=== PATIENT | female | born 2000 | race Caucasian/White ===

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

== ENCOUNTER 2019-01-19 18:11 | Emergency (ER) | payer BC, MEDICAID ==
[2019-01-19 18:34] VITALS: BP 99/64
--- NOTE | 2019-01-19 19:37 | UC ---
Abdominal Pain Female HPI - HPI Summary HPI Summary: 18 year old female presents with 3 day history of epigastric pain with nausea. States she vomited once this morning with blood streaks in her emesis. Reports pain is constant, sharp, and worsens with eating. Patient states she has had some similar issues in the past with no definitive diagnosis. Had an EGD performed approximately 2 years ago that showed "some inflammation". Denies fever, chills, heartburn, diarrhea, blood in stool, melena, back/flank pain, dysuria, frequency, urgency, or hematuria. - History of Current Complaint Chief Complaint: UCGI Stated Complaint: ABDOMINAL PAIN Time Seen by Provider: 01/19/19 19:21 Hx Obtained From: Patient Hx Last Menstrual Period: Currently Pain Intensity: 9 Allergies/Adverse Reactions: Allergies Allergy/AdvReac Type Severity Reaction Status Date / Time Penicillins Allergy Rash Verified 01/19/19 18:34 PMH/Surg Hx/FS Hx/Imm Hx Previously Healthy: Yes Other History Of: Negative For: HIV, Hepatitis B, Anticoagulant Therapy - Surgical History Surgical History: None - Family History Known Family History: Positive: Hypertension Negative: Cardiac Disease, Diabetes - Social History Occupation: Student Lives: With Family Alcohol Use: Rare Substance Use Type: None Smoking Status (MU): Never Smoked Tobacco - Immunization History Vaccination Up to Date: Yes Review of Systems All Other Systems Reviewed And Are Negative: Yes Constitutional: Negative: Fever, Chills ENT: Negative: Sore Throat Respiratory: Negative: Shortness Of Breath, Cough Cardiovascular: Negative: Palpitations, Chest Pain Gastrointestinal: Positive: Abdominal Pain, Vomiting, Nausea. Negative: Diarrhea Genitourinary: Negative: Dysuria, Hematuria, Frequency, Urgency Musculoskeletal: Positive: Negative Neurological: Positive: Negative Is Patient Immunocompromised?: No Physical Exam - Summary Physical Exam Summary: GENERAL APPEARANCE: Well developed, well nourished, alert and cooperative, and appears to be in no acute distress. NOSE: Mild nasal congestion. No nasal discharge. THROAT: Pharynx normal. Tonsils 2+ without exudate or lesions. Uvula midline. Oral cavity normal. Teeth and gingiva in good general condition. NECK: Neck supple, non-tender without lymphadenopathy. CARDIAC: Normal S1 and S2. No S3, S4 or murmurs. Rhythm is regular. There is no peripheral edema, cyanosis or pallor. Extremities are warm and well perfused. Capillary refill is less than 2 seconds. Peripheral pulses intact. LUNGS: Clear to auscultation without rales, rhonchi, wheezing or diminished breath sounds. ABDOMEN: Positive bowel sounds. Soft, nondistended. Generalized abdominal pain with pain most pronounced in the RUQ and epigastrum. No guarding or rebound. No masses or hepatosplenomegally. No CVA tenderness. MUSKULOSKELETAL: ROM intact to all extremities. No joint erythema or tenderness. Normal muscular development. Normal gait. SKIN: Skin normal color, texture and turgor with no lesions or eruptions. Triage Information Reviewed: Yes Vital Signs: Initial Vital Signs Temp 98.9 F 01/19/19 18: Pulse 90 01/19/19 18:23 Resp 18 01/19/19 18: BP 99/64 01/19/19 18: Pulse Ox 96 01/19/19 18:23 Vital Signs Reviewed: Yes Abd Pain Female Course/Dx - Course Course Of Treatment: 18 year old female presents with 3 day history of epigastric pain with nausea. States she vomited once this morning with blood streaks in her emesis. Reports pain is constant, sharp, and worsens with eating. Patient states she has had some similar issues in the past with no definitive diagnosis. Had an EGD performed approximately 2 years ago that showed "some inflammation". Denies fever, chills, heartburn, diarrhea, blood in stool, melena, back/flank pain, dysuria, frequency, urgency, or hematuria. She is presently having her menses. Afebrile. Vital signs stable. Exam remarkable for generalized abdominal pain, most pronounced in the epigastrum and RUQ. No hepatosplenomegally. No CVA tenderness. POC UA showed 2+ blood, likely from menses, but was otherwise negative. Urine negative. Discussed differential diagnoses with patient including PUD, gall bladder disease, pancreatitis, and GERD. Ultrasound not available at this time therefore recommending that she be evaluated in the ED at this time to which she is agreeable. She is electing to transport via private vehicle with her aunt driving. She was recommended to remain NPO until evaluation. - Differential Dx/Diagnosis Differential Diagnosis: Gall Bladder Disease, Peptic Ulcer Disease, , Urinary Tract Infection Provider Diagnosis: Epigastric abdominal pain Discharge - Sign-Out/Discharge Documenting (check all that apply): Patient Departure All imaging exams completed and their final reports reviewed: No Studies - Discharge Plan Condition: Stable Disposition: HOME Patient Education Materials: Acute Abdominal Pain (ED) Referrals: Chet López MD [Primary Care Provider] - Additional Instructions: I suspect that your abdominal pain may be peptic ulcer disease although I cannot fully rule out the possibility of gall bladder disease. I do not have ultrasound available at this time and therefore cannot rule this out. I am recommending that you go to the emergency room for further evaluation at this time. Go directly to the emergency room at [facility]. Do not eat or drink anything until you have been evaluated. - Billing Disposition and Condition Condition: STABLE Disposition: Home
== END 2019-01-19 20:05 | disposition home or self-care (01) ==
LOC: UCEAST 18:11
DX: R10.13 Epigastric pain (principal); Z88.0 Allergy status to penicillin
CPT/HCPCS: 81003; 84702; 99212; G0463

== ENCOUNTER 2019-01-19 20:36 | Emergency (ER) | payer SELFPAY ==
[2019-01-19] MEDS ORDERED: Lidocaine 2% VISCOUS* 15 ML UDC PO ONE (21:41)
[2019-01-19] MEDS ORDERED: Al Hydrox/Mg Hydrox/Simet LIQ* 30 ML UDC PO ONE (21:41)
[2019-01-19] MEDS ORDERED: Ondansetron ODT TAB* 4 MG PO ONE (21:41)
[2019-01-19] MEDS ORDERED: Famotidine TAB* 20 MG PO ONE (21:42)
--- NOTE | 2019-01-19 21:45 | ED ---
GI/ HPI - HPI Summary HPI Summary: 18-year-old female presents with epigastric pain for the past couple days. States she's had this in the past. She started taking ibuprofen for pain. She states she vomited and there was minimal blood. She denies any urinary symptoms. No diarrhea or constipation. She denies any vaginal discharge. No previous belly surgeries. Has no conditions. Had endoscope two year ago that showed some inflammatory in her stomach. - History of Current Complaint Chief Complaint: EDAbdPain Time Seen by Provider: 01/19/19 21:34 Stated Complaint: CC SAID SHE NEEDS AN ULTRA SOUND PER MOTHER Hx Last Menstrual Period: Currently Pain Intensity: 8 - Allergy/Home Medications Allergies/Adverse Reactions: Allergies Allergy/AdvReac Type Severity Reaction Status Date / Time Penicillins Allergy Rash Verified 01/19/19 20:44 PMH/Surg Hx/FS Hx/Imm Hx Endocrine/Hematology History: Denies: Hx Anticoagulant Therapy, Hx Diabetes, Hx Thyroid Disease Cardiovascular History: Denies: Hx Congestive Heart Failure, Hx Deep Vein Thrombosis, Hx Hypertension , Hx Myocardial Infarction, Hx Pacemaker/ICD Respiratory History: Reports: Hx Asthma Denies: Hx Chronic Obstructive Pulmonary Disease (COPD), Hx Lung Cancer, Hx Pneumonia, Hx Pulmonary Embolism GI History: Denies: Hx Gall Bladder Disease, Hx Gastrointestinal Bleed, Hx Ulcer, Hx Urosepsis History: Denies: Hx Kidney Stones, Hx Renal Disease Neurological History: Denies: Hx Dementia, Hx Migraine, Hx Seizures, Hx Transient Ischemic Attacks (TIA) Psychiatric History: Reports: Hx Anxiety, Hx Depression, Hx Bipolar Disorder Infectious Disease History: No Infectious Disease History: Denies: Traveled Outside the [place] in Last 30 Days - Family History Known Family History: Positive: Hypertension Negative: Cardiac Disease, Diabetes - Social History Alcohol Use: Rare Substance Use Type: Reports: None Smoking Status (MU): Never Smoked Tobacco Review of Systems Negative: Fever Negative: Chest Pain Negative: Shortness Of Breath Positive: Abdominal Pain. Negative: Vomiting, Diarrhea, Nausea All Other Systems Reviewed And Are Negative: Yes Physical Exam Triage Information Reviewed: Yes Vital Signs On Initial Exam: Initial Vitals Temp Pulse Resp BP Pulse Ox 99.1 F 80 16 134/66 98 01/19/19 20:40 01/19/19 20:40 01/19/19 20:40 01/19/19 20:40 01/19/19 20:40 Vital Signs Reviewed: Yes Appearance: Positive: Well-Appearing Skin: Positive: Warm, Dry Head/Face: Positive: Normal Head/Face Inspection Eyes: Positive: Normal, Conjunctiva Clear ENT: Positive: Pharynx normal Respiratory/Lung Sounds: Positive: Clear to Auscultation, Breath Sounds Present Cardiovascular: Positive: Normal, RRR Abdomen Description: Positive: Soft, Other: - tenderness in epigastric region Bowel Sounds: Positive: Present Musculoskeletal: Positive: Normal Neurological: Positive: Normal Psychiatric: Positive: Normal Diagnostics - Vital Signs Vital Signs Temp Pulse Resp BP Pulse Ox 01/19/19 20:40 99.1 F 80 16 134/66 98 - Laboratory Result Diagrams: 01/19/19 21:47 01/19/19 21:47 Lab Statement: Any lab studies that have been ordered have been reviewed, and results considered in the medical decision making process. - Ultrasound No standard instances Ultrasound Interpretation Completed By: Radiologist Summary of Ultrasound Findings: IMPRESSION: 1. No evidence of an echogenic stone located in the gallbladder. No abnormal. gallbladder wall thickening. 2. The appearance of the liver, right kidney and what was seen of the pancreas. are normal. GIGU Course/Dx - Course Course Of Treatment: 18-year-old female presents with epigastric pain for the past couple days. States she's had this in the past. She started taking ibuprofen for pain. She states she vomited and there was minimal blood. She denies any urinary symptoms. No diarrhea or constipation. She denies any vaginal discharge. No previous belly surgeries. Has no conditions. Had endoscope two year ago that showed some inflammatory in her stomach. On exam has mild tenderness in the epigastric. wbc normal. CRP normal. gallbladder ultrasound normal. We'll treat with omeprazole, carafate and maalox. told follow up with GI if no improvement. patient understand and agrees with plan. - Diagnoses Differential Diagnoses - Female: Esophagitis/Gastritis, Gall Bladder Disease, Urinary Tract Infection Provider Diagnoses: Epigastric pain Discharge - Sign-Out/Discharge Documenting (check all that apply): Patient Departure Patient Received Moderate/Deep Sedation with Procedure: No - Discharge Plan Condition: Good Disposition: HOME Prescriptions: Al Hydrox/Mg Hydrox/Simet LIQ* [Maalox Plus*] 30 ml PO Q6H PRN #1 bottle PRN Reason: Dyspepsia Omeprazole CAP (NF) [Prilosec CAP* 20 MG] 20 mg PO DAILY #14 vionne. Ondansetron ODT TAB* [Zofran 4 MG Odt TAB*] 4 mg PO Q6H PRN #12 tab.odt PRN Reason: Nausea Sucralfate TAB* [Carafate*] 1 gm PO BID #28 tab Patient Education Materials: Epigastric Pain (ED) Referrals: Hattie Patton MD [Medical Doctor] - Additional Instructions: Take omeprazole once a day Take Maalox 30ml every 6 hours for epigastric pain as needed take carafate twice a day avoid acidic food Follow up with GI if no improvement Return to ED if develop any new or worsening symptoms - Billing Disposition and Condition Condition: GOOD Disposition: Home
[2019-01-19 21:57] LABS: ABS Basophils 0 10^3/ul (0-0.2); ABS Eosinophils 0 10^3/ul (0-0.6); ABS Monocytes 0.4 10^3/ul (0-0.8); ABS Neutrophils 3.3 10^3/ul (1.5-7.7); ABS Nucleated RBC 0 10^3/ul; Hematocrit 39 % (33-41); Hemoglobin 13.4 g/dL (12.0-16.0); Lymphocyte % 21.7 %; Mean Corpuscular HGB Conc 35 g/dL (31-36); Mean Corpuscular Hemoglobin 31 pg (27-31); Mean Corpuscular Volume 88 fL (80-97); Mean Platelet Volume 7.8 fL (7.4-10.4); Nucleated Red Blood Cells % 0.1; Platelet Count 247 10^3/uL (150-450); Red Blood Count 4.38 10^6 /uL (3.70-4.87); Red Cell Distribution Width 13 % (10.5-15); White Blood Count 4.8 10^3/uL (3.5-10.8)
[2019-01-19 22:12] LABS: ALT 8 U/L (7-52); AST 12 U/L (13-39); Albumin 4.7 g/dL (3.2-5.2); Alkaline Phosphatase 55 U/L (34-104); Anion Gap 7 mmol/L (2-11); BUN/Creatinine Ratio 17.5 (8-20); Blood Urea Nitrogen 10 mg/dL (6-24); CO2 Carbon Dioxide 24 mmol/L (22-32); Calcium 9.2 mg/dL (8.6-10.3); Chloride 107 mmol/L (101-111); EGFR African American 165.3 (>60); EGFR Non-African American 136.6 (>60); Globulin 2.3 g/dL (2-4); Glucose 84 mg/dL (70-100); Potassium 3.8 mmol/L (3.5-5.0); Sodium 138 mmol/L (135-145)
[2019-01-19 22:18] LABS: HCG Pregnancy < 0.60 mIU/mL
[2019-01-19 23:53] VITALS: BP 115/74
== END 2019-01-19 23:45 | disposition home or self-care (01) ==
LOC: ED 20:36
DX: R10.13 Epigastric pain (principal); K92.0 Hematemesis; Z88.0 Allergy status to penicillin
CPT/HCPCS: 36415; 76705; 80053; 83690; 84702; 85025; 99282; A9270-GY

== ENCOUNTER 2019-08-20 11:54 | Emergency (ER) | payer SELFPAY ==
[2019-08-20 13:04] VITALS: BP 102/63
--- NOTE | 2019-08-20 13:48 | UC ---
Throat Pain/Nasal Sebas HPI - HPI Summary HPI Summary: 19 y/o female presents to the urgent care c/o Sinus congestion and pressure w/ yellowish nasal discharge for the past 2 weeks. Then she developed a deep cough and dry heaving , Nausea, decrease appetite, myalgias. She is unsure if she has had a fever, but is experiencing cold sweats for the past 2 days. She feels like something new is over her. Pt denies SOB, wheezing, dizziness, ear pain, chest pain, abdominal pain, N/V/D. She has taken OTC medications w/o any improvement. - History of Current Complaint Chief Complaint: UCGeneralIllness Stated Complaint: COUGH/NAUSEA Time Seen by Provider: 08/20/19 13:44 Hx Obtained From: Patient Hx Last Menstrual Period: 08/20/19 ?: No Onset/Duration: Gradual Onset, Lasting Weeks - 2 weeks, Still Present, Worse Since - 2 days Severity: Moderate Pain Intensity: 4 - sinus pain Pain Scale Used: 0-10 Numeric Cough: Nonproductive Associated Signs & Symptoms: Positive: Sinus Discomfort, Nasal Discharge - yellowish. Negative: Wheezing, Hoarseness, Fever - Epiglottits Risk Factors Epiglottis Risk Factors: Negative - Allergies/Home Medications Allergies/Adverse Reactions: Allergies Allergy/AdvReac Type Severity Reaction Status Date / Time Penicillins Allergy Rash Verified 08/20/19 12:59 Home Medications: Home Medications Ibuprofen/Pseudoephedrine HCl [Advil Cold & Sinus Caplet] 1 tab PO ONCE [History Confirmed 08/20/19] PMH/Surg Hx/FS Hx/Imm Hx Previously Healthy: Yes Respiratory History: Asthma - exercise induced asthma Other History Of: Negative For: HIV, Hepatitis B, Anticoagulant Therapy - Surgical History Surgical History: Yes Surgery Procedure, Year, and Place: Endoscopy 2017 - Family History Known Family History: Positive: Hypertension Negative: Cardiac Disease, Diabetes - Social History Occupation: Student Lives: With Family Alcohol Use: None Substance Use Type: None Smoking Status (MU): Never Smoked Tobacco - Immunization History Vaccination Up to Date: Yes Review of Systems All Other Systems Reviewed And Are Negative: Yes Constitutional: Positive: Chills, Other - decrease appetite and bodya aches Skin: Positive: Negative Eyes: Positive: Negative ENT: Positive: Sore Throat, Ear Ache - B/l ear pressure, Nasal Discharge - yellowish, Sinus Congestion, Sinus Pain/Tenderness, Other - yellowish PND Respiratory: Positive: Cough - dry Cardiovascular: Positive: Negative Gastrointestinal: Positive: Negative Genitourinary: Positive: Negative Motor: Positive: Negative Neurovascular: Positive: Negative Musculoskeletal: Positive: Negative Neurological: Positive: Negative Psychological: Positive: Negative Is Patient Immunocompromised?: No Physical Exam - Summary Physical Exam Summary: Vitals: reviewed General: Well developed, well-nourished female patient with NAD. Head and face: Normocephalic and atraumatic, Positive tenderness over the frontal and maxillary sinuses.. Eyes: PERRLA, EOMI x 2. Normal conjunctiva. No eye discharge. ENT: Ears and TM with normal limits. Nose: edematous and erythematous nasal mucosa with with yellowish discharge and erythematous mucosa. Pharynx with erythema, no exudate. yellowish PND Neck: Supple, no JVD, no carotid bruits and no lymphadenopathy. Lungs: clear, no rales, no rhonchi, no wheezes. CVS: RRR, S1 and S2 present no murmurs or gallops appreciated. Abdomen: soft nontender with positive bowel sounds. Extremities: no edema noted. Neuro: WNL. Skin: warm and dry Triage Information Reviewed: Yes Vital Signs: Initial Vital Signs Temp 100.5 F 08/20/19 13:00 Pulse 100 08/20/19 13:00 Resp 16 08/20/19 13:00 BP 102/63 08/20/19 13:00 Pulse Ox 98 08/20/19 13:00 Throat Pain/Nasal Course/Dx - Course Course Of Treatment: 19 y/o female presents to the urgent care c/o Sinus congestion and pressure w/ yellowish nasal discharge for the past 2 weeks. Then she developed a deep cough and dry heaving , Nausea, decrease appetite, myalgias. She is unsure if she has had a fever, but is experiencing cold sweats for the past 2 days. She feels like something new is over her. Pt denies SOB, wheezing, dizziness, ear pain, chest pain, abdominal pain, N/V/D. She has taken OTC medications w/o any improvement. Hx obtained. Pt w/ acute bacterial sinusitis on examination. Pt is febrile 100.5F. Pt given Ibuprofen PO by the nurse for fever. Rapid strep: negative. Rapid influenza A&B: negative. Pt with 2 weeks of symptoms getting worse. She is allergic to PCN. Pt Rx Doxycycline PO and flonase nasal spray. Tessalon PO for cough. Discharge instructions explained to Pt. Advised to Return to the clinic or PCP if symptoms do not improve.Pt understood and agreed with plan of care. - Differential Dx/Diagnosis Differential Diagnosis/HQI/PQRI: Influenza, Laryngitis, Otitis Media, Pharyngitis, Sinusitis, URI Provider Diagnosis: Acute bacterial sinusitis Discharge ED - Sign-Out/Discharge Documenting (check all that apply): Patient Departure - D/C home All imaging exams completed and their final reports reviewed: No Studies - Discharge Plan Condition: Stable Disposition: HOME Prescriptions: DOXYcycline CAP(*) [DOXYcycline 100MG CAP(*)] 100 mg PO BID #14 cap Fluticasone NASAL SPRAY 50MCG* [Flonase NASAL SPRAY 50MCG*] 2 spray BOTH NARES DAILY #1 btl Patient Education Materials: Sinusitis (ED) Referrals: [facility] [Outside] - 3 Days Additional Instructions: 1- Please increase fluid intake and rest. take full course of antibiotics to avoid resistance. Take yogurts w/ probiotics or Culturelle to protect your GI system 2-Use Flonase as directed to help drain fluid. Also buy saline drops to clear sinuses 3-Take Ibuprofen PO 600mg PO q6-8hrs prn after meals to alleviate sinus pain, [place] and fever. Increase hydration, rest, avoid strenuous exercise 4-Please f/u w/ your PCP in 3 days if symptoms do not improve for further management and treatment - Billing Disposition and Condition Condition: STABLE Disposition: Home - Attestation Statements Provider Attestation: I was available for consult. This patient was seen by the ALEXANDER. The patient was not presented to, seen by, or examined by me. -Porsha
[2019-08-20] MEDS ORDERED: Ibuprofen TAB* 600 MG PO ONE (14:02)
[2019-08-20 14:18] LABS: Influenza A Molecular NEGATIVE (Negative); Influenza B Molecular NEGATIVE (Negative)
== END 2019-08-20 14:30 | disposition home or self-care (01) ==
LOC: UCEAST 11:54
DX: J01.80 Other acute sinusitis (principal); B96.89 Other specified bacterial agents as the cause of diseases classified elsewhere; J45.998 Other asthma; Z88.0 Allergy status to penicillin
CPT/HCPCS: 87651; 99212; A9270-GY; G0463